=== PATIENT | male | born 1950 | race Caucasian/White ===

== ENCOUNTER 2019-12-19 09:34 | Outpatient (CLI) | payer MEDICARE, OTHER, SELFPAY ==
[2019-12-19 10:09] LABS: Blood Urea Nitrogen 15 mg/dL (9-20); Calcium 9.5 mg/dL (8.4-10.2); Carbon Dioxide 31 mmol/L (22-30); Chloride 106 mmol/L (98-107); Estimated Glomerular Filt Rate > 60; Glucose 106 mg/dL (75-110); Potassium 4.2 mmol/L (3.4-5.0); Sodium 142 mmol/L (137-145)
== END 2019-12-19 09:35 | disposition home or self-care (01) ==
PROVIDERS: Visit Provider Internal Medicine Cardiovascular Disease
DX: I10 Essential (primary) hypertension (principal)
CPT/HCPCS: 36415; 80048

== ENCOUNTER 2021-01-19 12:32 | Emergency (ER) | payer MEDICARE, OTHER, SELFPAY ==
--- NOTE | ~2021-01-19 | XR_ITS ---
EXAMINATION: XR chest 2V DATE: 01/19/2021 13:32 INDICATION: Shortness of breath. Chest pain. TECHNIQUE: Frontal and lateral views of the chest were obtained. COMPARISON: Chest 2 views 02/03/2014, CT abdomen and pelvis 02/24/2015 FINDINGS: There is mild atelectasis in the lower lung zones. No pleural effusion or pneumothorax. Car diomegaly is noted. Surgical clips in the right upper quadrant are likely from cholecystectomy. IMPRESSION: 1. Mild atelectasis in the lower lung zones. 2. Cardiomegaly. Reviewed, dictated and finalized at location B.
[2021-01-19 12:34] VITALS: BP 163/93; PULSE 67; RESP 16; TEMP 36.4; O2SAT 100
--- NOTE | 2021-01-19 12:47 | ECG_ITS ---
Measurements Intervals [place] Rate: 70 P: 80 WA: 192 QRS: -10 QRSD: 106 T: 28 QT: 421 QTc: 454 Interpretive Statements SINUS RHYTHM ATRIAL AND VENTRICULAR PREMATURE COMPLEXES DELAYED PRECORDIAL R/S TRANSITION BORDERLINE T WAVE ABNORMALITY- INF/LAT LEADS BASELINE ARTIFACT- I, II, III, AVL, V5-V6 BORDERLINE ECG Electronically Signed On 01-19-2021 13:06:29 CDT by Channing Elmore D.O.
[2021-01-19 13:07] LABS: Basophils Percent Auto 0.4 % (0.2-1.2); Eosinophils Absolute Auto 0.2 K/mm3 (0-0.3); Eosinophils Percent Auto 2.1 % (0-4.4); Hematocrit 45.3 % (42.0-52.0); Hemoglobin 15.7 g/dL (14.0-18.0); Immature Granulocyte Absolute 0.05 K/mm3 (0.00-0.031); Immature Granulocyte Percent A 0.5 % (0-0.5); Immature Platelet Fraction Pct 6.3 % (0.9-11.2); Lymphocytes Absolute Auto 2.58 K/mm3 (0.9-3.2); Lymphocytes Percent Auto 26.2 % (18.3-44.2); Mean Corpuscular HGB Conc 34.7 g/dl (32-36); Mean Corpuscular Hemoglobin 30.7 pg (26-34); Mean Corpuscular Volume 88.5 fl (80-100); Mean Platelet Volume 10.7 fl (7.4-10.4); Monocytes Absolute Auto 0.7 K/mm3 (0.1-0.6); Neutrophils Absolute Auto 6.3 K/mm3 (1.3-6.7); Neutrophils Percent Auto 63.8 % (45.5-73.1); Platelet Count Result 140 k/mm3 (150-375); Red Blood Count 5.12 M/mm3 (4.6-6.20); Red Cell Distribution Width 12.7 % (11.5-14.5); White Blood Count 9.9 K/mm3 (4.5-10.0)
--- NOTE | 2021-01-19 13:08 | ED.BACK ---
HPI - Back Pain/Injury General Chief Complaint: Back Pain/Injury Stated Complaint: upper body pain , nausea Time Seen by Provider: 01/19/21 12:45 Source: patient Mode of arrival: ambulatory Limitations: no limitations History of Present Illness HPI Narrative: This is a 70 year old male that presents to the ER for upper back discomfort x 3 days. No known injury or trauma. Reports the pain is intermittent and sharp in nature. The pain has now started to radiate into his chest. Reports shortness of breath and nausea. Denies fever, vomiting, diarrhea, dysuria or hematuria. Related Data Home Medications Medication Instructions Recorded Confirmed amlodipine 10 mg-benazepril 40 mg 1 cap PO DAILY 02/12/20 02/17/20 capsule aspirin 81 mg tablet,delayed 81 mg PO DAILY 02/12/20 02/17/20 release atorvastatin 40 mg tablet 40 mg PO DAILY 02/12/20 02/17/20 hydrochlorothiazide 25 mg tablet 25 mg PO DAILY 02/12/20 02/17/20 loperamide 2 mg capsule 2 mg PO Q6H PRN 02/12/20 02/17/20 meclizine 25 mg tablet 25 mg PO BID 02/12/20 02/17/20 metoprolol tartrate 25 mg tablet 25 mg PO DAILY 02/12/20 02/17/20 pantoprazole 40 mg tablet,delayed 40 mg PO QAM 02/12/20 02/17/20 release tamsulosin 0.4 mg capsule 0.4 mg PO DAILY 02/12/20 02/17/20 Allergies Allergy/AdvReac Type Severity Reaction Status Date / Time No Known Allergies Allergy Verified 01/19/21 12:37 Review of Systems Review of Systems: Narrative: CONSTITUTIONAL: Denies fever CARDIOVASCULAR: Reports chest pain. Denies edema. RESPIRATORY: Reports cough and dyspnea. GASTROINTESTINAL: Reports nausea. Denies abdominal pain, vomiting, or diarrhea. GENITOURINARY: Denies dysuria or hematuria. SKIN: Denies rash MUSCULOSKELETAL: Reports back pain, joint pain, and myalgia. NEUROLOGIC: Denies numbness, or weakness. All systems reviewed & are unremarkable except as noted in HPI and below PMFSH Past Medical History Medical History (Updated 01/19/21 @ 14:45 by Gloria Kate PA-C) History of gastroesophageal reflux (GERD) History of hyperlipidemia History of hypertension Family History Family History (Updated 02/11/18 @ 07:17 by DOCTOR UNKNOWN) Mother Diabetes mellitus, Onset Age: 84 Hypertension, Onset Age: 84 Cerebrovascular accident Family history of hearing loss Sibling Hypertension, Onset Age: 63 Family history of rheumatoid arthritis, Onset Age: 63 Family history of renal cell carcinoma Family history of thyroid disease Family history of obesity Family history of osteoporosis Family history of arthritis Family history of malignant neoplasm Father Family history of cardiovascular disease, Onset Age: 84 Family history of atrial fibrillation Family history of congestive heart failure Family history of heart disease in male family member before age 55 Family history of hearing loss Social History Social History Smoking status: Former smoker Smoking end date: 09/30/15 Alcohol intake: current Gender identity (if verbalized by the patient): Male Exam Narrative: Exam Narrative: GENERAL: Well-appearing, well-nourished, and in no acute distress. HEAD: Normocephalic, atraumatic. EYES: PERRLA and EOMI. ENT: Nares clear, no rhinorrhea or epistaxis. Mucous membranes moist. Oropharynx without tonsillar hypertrophy exudate or other lesions. Bilateral TMs pearly warren non-bulging NECK: Supple. No adenopathy or masses. No carotid bruits or JVD CHEST: Clear to auscultation. No respiratory distress. No wheezes rales or rhonchi HEART: Regular rate and rhythm. No murmur heard. Normal peripheral pulses. ABDOMEN: Soft, nontender, nondistended, normal active bowel sounds. EXTREMITIES: Normal range of motion. No edema. SKIN: Warm, dry, no rash. NEURO: No focal deficits. Alert and oriented x3. PSYCH: Normal mood and affect Course Vital Signs Vital signs: Vital Signs Temperature 97.6 F 01/19/21 12:34 Pulse Rate 67 01/19/21 12:34 Respiratory R
[2021-01-19 13:15] LABS: INR 0.9; Prothrombin Time 12.9 Seconds (11.1-14.7)
[2021-01-19 13:18] LABS: Alanine Aminotransferase 19 U/L (4-50); Albumin Level 4.2 g/dL (3.5-5.1); Alkaline Phosphatase 74 U/L (38-126); Anion Gap 7 mmol/L (8-16); Aspartate Amino Transferase 29 U/L (17-59); Bilirubin,Total 1.2 mg/dL (0.2-1.3); Blood Urea Nitrogen 11 mg/dL (9-20); CRP < 0.5 mg/dL (<1.0); Carbon Dioxide 30 mmol/L (22-30); Chloride 104 mmol/L (98-107); Estimated CRCL calculation 66 ml/min; Estimated Glomerular Filt Rate > 60; Glucose 91 mg/dL (75-110); Lipase 33 U/L (23-300); Potassium 3.5 mmol/L (3.4-5.0); Sodium 141 mmol/L (137-145)
[2021-01-19 13:27] LABS: Partial Thromboplastin Time 23.2 SECONDS (22.3-36.8)
[2021-01-19 13:35] LABS: D Dimer 0.27 ug/mL (<0.48)
[2021-01-19 13:42] LABS: Troponin I < 0.012 ng/mL (0.000-0.034)
[2021-01-19] MEDS: ONDANSETRON INJ 4 MG/2 ML VIAL IV PUSH (13:53)
[2021-01-19] MEDS: PANTOPRAZOLE SODIUM IV 40 MG VIAL IV PUSH (13:53)
[2021-01-19 13:54] LABS: Add Urine Microscopic? YES; Appearance Urine Clear (Clear); Bilirubin Urine Negative (Negative); Blood Urine Negative (Negative); Color Urine Yellow (Yellow); Glucose Urine UA Negative (Negative); Ketones Urine Negative (Negative); Leukocyte Esterase Ur Negative LEU/UL (Negative); Mucus Urine Rare /lpf; Nitrate Urine Negative (Negative); Protein Urine 1+ mg/dL (Negative); RBC Urine 0-2 /hpf (0-2); Specific Grav Ur 1.021 (1.001-1.035); Squamous Epithelial Cell Urine Rare /hpf (Few); Urobilinogen Urine Negative mg/dL (<2.0); WBC Urine 0-3 /hpf
[2021-01-19 13:55] VITALS: PULSE 60; RESP 14; O2SAT 99
[2021-01-19 14:00] VITALS: PULSE 59; RESP 16; O2SAT 95
[2021-01-19 14:16] VITALS: PULSE 60; RESP 14; O2SAT 94
[2021-01-19 14:31] VITALS: PULSE 55; RESP 16; O2SAT 100
[2021-01-19 14:55] VITALS: BP 150/70; PULSE 58; RESP 12; O2SAT 99
== END 2021-01-19 15:05 | disposition home or self-care (01) ==
PROVIDERS: Physician Assistant; Emergency Provider Emergency Medicine
DX: M54.6 Pain in thoracic spine (principal); K21.9 Gastro-esophageal reflux disease without esophagitis; E78.5 Hyperlipidemia, unspecified; I10 Essential (primary) hypertension; Z79.82 Long term (current) use of aspirin; Z87.891 Personal history of nicotine dependence; I49.1 Atrial premature depolarization; I49.3 Ventricular premature depolarization; R94.31 Abnormal electrocardiogram [ECG] [EKG]; I51.7 Cardiomegaly; R91.8 Other nonspecific abnormal finding of lung field; R06.02 Shortness of breath
CPT/HCPCS: 36415; 71046; 80053; 81001; 83690; 84484; 85025; 85055; 85380; 85610; 85730; 86140; 93005; 96374; 96375; 99284; C9113; J0131; J2405